=== PATIENT | male | born 2000 | race Caucasian/White ===

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

== ENCOUNTER 2023-10-05 08:18 | Emergency (ER) | payer BC ==
--- NOTE | 2023-10-05 08:23 | ERPHSYRPT ---
- History of Present Illness Time Seen by Provider: 10/05/23 08:22 Historian: patient Exam Limitations: no limitations Physician History: This is a 23-year-old white male patient of nurse practitioner Glenn who has significant hypertension and is on multiple medications for this and presents with intermittent chest pain for several months. The chest pain was worse this morning at 6 AM and associated with shortness of breath. Patient had episode of vomiting after taking his blood pressure medication this morning. He describes the pain as a pressure in the mid chest that radiates up into his throat and straight through to his back. Patient vapes often. He admits to marijuana use. He denies other illicit drug use. Patient states that his blood pressure medi cation regimen includes hydralazine, metoprolol and clonidine. He has no known exposures to individuals with similar symptoms or who have been diagnosed with flu. Patient states that he was diagnosed with flu a 2 weeks ago. Patient is under a lot of stress at this time. Patient recently lost his job. Timing/Duration: worse (This morning), other (Several months) Quality: pressure Location: substernal, central Chest Pain Radiation: neck, back Severity of Pain-Max: moderate Severity of Pain-Current: moderate Modifying Factors: Improves With: coughing Associated Symptoms: shortness of breath, cough, fever Prior Chest Pain/Cardiac Workup: no prior chest pain Nitro Today/Relief: no nitro taken today Aspirin Treatment Today: 81 mg x 4, provided by ED Allergies/Adverse Reactions: No Known Drug Allergies Allergy (Verified 09/05/21 21:46) Home Medications: Amlodipine Besylate 10 mg PO QAM 10/05/23 [History] Clonidine HCl 0.1 mg [Clonidine 0.1 mg Tablet] 0.1 mg PO BID 10/05/23 [History] Hydralazine HCl 50 mg PO BID 10/05/23 [History] Metoprolol Succinate 25 mg PO QAM 10/05/23 [History] Hx Tetanus, Diphtheria Vaccination/Date Given: Yes Hx Influenza Vaccination/Date Given: No Hx Pneumococcal Vaccination/Date Given: No Travel Risk - International Travel Have you traveled outside of the country in past 3 weeks: No - Coronavirus Screening Are you exhibiting any of the following symptoms?: Yes Symptoms: Fever, Cough: New Onset, Shortness of Breath, Vomiting/Diarrhea - Vaccine Status Have you recieved a Covid-19 vaccination: No - Review of Systems Constitutional: Fever Eyes: No Symptoms Ears, Nose, & Throat: No Symptoms Respiratory: Cough, Dyspnea Cardiac: Chest Pain Abdominal/Gastrointestinal: Nausea, Vomiting, Appetite Changes Genitourinary Symptoms: No Symptoms Musculoskeletal: No Symptoms Skin: No Symptoms Neurological: No Symptoms Psychological: No Symptoms Endocrine: No Symptoms Hematologic/Lymphatic: No Symptoms Immunological/Allergic: No Symptoms All Other Systems: Reviewed and Negative - Past Medical History Pertinent Past Medical History: Yes Neurological History: No Pertinent History ENT History: No Pertinent History Cardiac History: Other Respiratory History: Other Endocrine Medical History: No Pertinent History Musculoskeletal History: Fractures GI Medical History: No Pertinent History History: Renal Disease, Other Psycho-Social History: No Pertinent History Male Reproductive Disorders: No Pertinent History Other Medical History: PT HAD PNEUMO AT ; HEART MURMUR, Kidney stones - Past Surgical History Past Surgical History: No Other Surgical History: chest tube as - Social History Smoking Status: Never smoker How long have you smoked: 2 years Exposure to second hand smoke: Yes Drug Use: marijuana Patient Lives Alone: No Significant Family History: hypertension - Nursing Vital Signs Nursing Vital Signs: Initial Vital Signs Temperature 99.2 F 10/05/23 08:19 Pulse Rate 123 H 10/05/23 08:19 Respiratory Rate 22 10/05/23 08:19 O2 Sat by Pulse Oximetry 95 10/05/23 08:19 Pain Scale Pain Intensity 5 - Physical Exam General Appearance: mild distress, alert, anxiety Ears, Nose, Throat Exam: normal ENT inspection, moist mucous membranes Neck Exam: normal inspection, non-tender, supple, full range of motion Respiratory Exam: normal breath sounds, chest tenderness, lungs clear, airway intact, No respiratory distress Cardiovascular Exam: tachycardia Gastrointestinal/Abdomen Exam: soft, normal bowel sounds, No tenderness Rectal Exam: not done Back Exam: normal inspection, normal range of motion, No CVA tenderness, No vertebral tenderness Extremity Exam: normal inspection, normal range of motion, pelvis stable Neurologic Exam: alert, oriented x 3, cooperative, item repair manager II-XII nml as tested, normal mood/affect, nml cerebellar function, nml station & gait Skin Exam: normal color, warm, dry Lymphatic Exam: No adenopathy SpO2 Interpretation: normal O2 Delivery: Room Air - Course Nursing assessment & vital signs reviewed: Yes EKG Interpreted by Me: RATE ([id number]), Sinus Tach, NORMAL AXIS, NORMAL INTERVALS, NORMAL QRS, NORMAL ST-T, Other (No acute ischemic changes on today's twelve-lead EKG.) Ordered Tests: Active Orders 24 hr Category Date Time Status Clean Catch Urine Specimen STAT Care 10/05/23 08:38 Active EKG-ER Only STAT Care 10/05/23 08:36 Active IV Insertion STAT Care 10/05/23 08:36 Active Pulse Oximetry (ED) STAT Care 10/05/23 08:36 Active CHEST 1 VIEW (PORTABLE) Stat Exams 10/05/23 08:37 Completed BLOOD CULTURE Stat Lab 10/05/23 09:34 Received CBC W DIFF Stat Lab 10/05/23 08:46 Completed CMP Stat Lab 10/05/23 08:46 Completed D-DIMER QUANTITATIVE Stat Lab 10/05/23 08:46 Completed MONO SCREEN Stat Lab 10/05/23 08:46 Completed PROTIME WITH INR Stat Lab 10/05/23 08:46 Completed TROPONIN Q4H Lab 10/05/23 08:46 Completed TROPONIN Q4H Lab 10/05/23 12:45 Ordered TROPONIN Q4H Lab 10/05/23 16:45 Ordered UA W/RFX UR CULTURE Stat Lab 10/05/23 08:46 Completed Urine Triage Profile Stat Lab 10/05/23 08:46 Completed Medication Summary Generic Name Dose Route Start Last Admin Trade Name Freq PRN Reason Stop Dose Admin Sodium Chloride 1,000 mls @ 999 mls/hr 10/05/23 10:03 Sodium Chloride 0.9% 1000 Ml IV 10/05/23 11:03 .Q1H1M STA Discontinued Medications Generic Name Dose Route Start Last Admin Trade Name Freq PRN Reason Stop Dose Admin Hydrocodone Bitart/Acetaminophen 15 ml 10/05/23 10:05 Hydrocodone/Acetaminophen 5 Ml Udcup PO 10/05/23 10:06 STAT STA Hydrocodone Bitart/Acetaminophen Confirm 10/05/23 10:13 Hydrocodone/Acetaminophen 5 Ml Udcup Administered 10/05/23 10:14 Dose 15 ml .ROUTE .STK-MED ONE Aspirin 324 mg 10/05/23 08:36 10/05/23 08:42 Aspirin 81 Mg Tab.Chew PO 10/05/23 08:37 324 mg STAT ONE Administration Aspirin Confirm 10/05/23 08:41 Aspirin 81 Mg Tab.Chew Administered 10/05/23 08:42 Dose 324 mg .ROUTE .STK-MED ONE Sodium Chloride 1,000 mls @ 999 mls/hr 10/05/23 08:36 10/05/23 08:42 Sodium Chloride 0.9% 1000 Ml IV 10/05/23 09:36 999 mls/hr .Q1H1M STA Administration Sodium Chloride Confirm 10/05/23 08:41 Sodium Chloride 0.9% 1000 Ml Administered 10/05/23 08:42 Dose 1,000 mls @ ud .ROUTE .STK-MED ONE Sodium Chloride Confirm 10/05/23 10:13 Sodium Chloride 0.9% 1000 Ml Administered 10/05/23 10:14 Dose 1,000 mls @ ud .ROUTE .STK-MED ONE Ondansetron HCl 4 mg 10/05/23 08:36 10/05/23 08:42 Ondansetron Hcl 4 Mg/2 Ml Vial IV 10/05/23 08:37 4 mg STAT ONE Administration Ondansetron HCl Confirm 10/05/23 08:40 Ondansetron Hcl 4 Mg/2 Ml Vial Administered 10/05/23 08:41 Dose 4 mg .ROUTE .STK-MED ONE Lab/Rad Data: Laboratory Result Diagrams 10/05/23 08:46 10/05/23 08:46 Laboratory Results 10/05/23 10/05/23 10/05/23 Range/Units 09:38 08:46 08:46 WBC (4.0-10.5) x10^3/uL RBC (4.1-5.6) x10^6/uL Hgb (12.5-18.0) g/dL Hct (42-50) % MCV (78-100) fL MCH (26-32) pg MCHC (32-36) g/dL RDW (11.5-14.0) % Plt Count (150-450) x10^3/uL MPV (7.5-11.0) fL Gran % (36.0-66.0) % Immature Gran % (Auto) (0.00-0.4) % Nucleat RBC Rel Count (0.00-0.1) % Eos # (Auto) (0-0.5) x10^3/uL Immature Gran # (Auto) (0.00-0.03) x10^3u/L Absolute Lymphs (auto) (1.0-4.6) x10^3/uL Absolute Monos (auto) (0.0-1.3) x10^3/uL Absolute Nucleated RBC (0.00-0.01) x10^3u/L Lymphocytes % (24.0-44.0) % Monocytes % (0.0-12.0) % Eosinophils % (0.00-5.0) % Basophils % (0.0-0.4) % Absolute Granulocytes (1.4-6.9) x10^3/uL Basophils # (0-0.4) x10^3/uL PT (9.4-12.5) SECONDS INR (0.8-3.0) D-Dimer (0.0-0.50) mg/L Sodium (137-145) mmol/L Potassium (3.5-5.1) mmol/L Chloride (98-107) mmol/L Carbon Dioxide (22-30) mmol/L Anion Gap (5-15) MEQ/L BUN (9-20) mg/dL Creatinine (0.66-1.25) mg/dL Estimated GFR ML/MIN Glucose (74-106) mg/dL Calcium (8.4-10.2) mg/dL Total Bilirubin (0.2-1.3) mg/dL AST (17-59) U/L ALT (0-50) U/L Alkaline Phosphatase (38-126) U/L Troponin I (0.000-0.034) ng/mL Serum Total Protein (6.3-8.2) g/dL Albumin (3.5-5.0) g/dL Urine Color (Yellow) Urine Appearance (Clear) Urine pH (4.6-8.0) Ur Specific [address] (1.005-1.030) Urine Protein (Negative) Urine Glucose (UA) (Negative) mg/dL Urine Ketones (Negative) Urine Blood (Negative) Urine Nitrite (Negative) Urine Bilirubin (Negative) Urine Urobilinogen (0.2) mg/dL Ur Leukocyte Esterase (Negative) U Hyaline Cast (Auto) (0-2) /LPF Urine Microscopic RBC (0-5) /HPF Urine Microscopic WBC (0-5) /HPF Ur Epithelial Cells (None Seen) /HPF Urine Bacteria (None Seen) /HPF Granular Casts (None Seen) /LPF Urine Culture Reflexed (NO) Urine Opiates Level (NEGATIVE) Ur Methadone (NEGATIVE) Urine Barbiturates (NEGATIVE) Ur Phencyclidine (PCP) (NEGATIVE) Urine Amphetamine (NEGATIVE) U Benzodiazepine Level (NEGATIVE) Urine Cocaine (NEGATIVE) Urine Marijuana (THC) (NEGATIVE) Monoscreen NEGATIVE (NEGATIVE) Influenza Type A Ag NEGATIVE (NEGATIVE) Influenza Type B Ag NEGATIVE (NEGATIVE) RSV (PCR) POSITIVE (NEGATIVE) SARS-CoV-2 (PCR) NEGATIVE (NEGATIVE) Group A Strep Antibody NOT DETECTED (NEGATIVE) 10/05/23 10/05/23 10/05/23 Range/Units 08:46 08:46 08:46 WBC (4.0-10.5) x10^3/uL RBC (4.1-5.6) x10^6/uL Hgb (12.5-18.0) g/dL Hct (42-50) % MCV (78-100) fL MCH (26-32) pg MCHC (32-36) g/dL RDW (11.5-14.0) % Plt Count (150-450) x10^3/uL MPV (7.5-11.0) fL Gran % (36.0-66.0) % Immature Gran % (Auto) (0.00-0.4) % Nucleat RBC Rel Count (0.00-0.1) % Eos # (Auto) (0-0.5) x10^3/uL Immature Gran # (Auto) (0.00-0.03) x10^3u/L Absolute Lymphs (auto) (1.0-4.6) x10^3/uL Absolute Monos (auto) (0.0-1.3) x10^3/uL Absolute Nucleated RBC (0.00-0.01) x10^3u/L Lymphocytes % (24.0-44.0) % Monocytes % (0.0-12.0) % Eosinophils % (0.00-5.0) % Basophils % (0.0-0.4) % Absolute Granulocytes (1.4-6.9) x10^3/uL Basophils # (0-0.4) x10^3/uL PT (9.4-12.5) SECONDS INR (0.8-3.0) D-Dimer (0.0-0.50) mg/L Sodium (137-145) mmol/L Potassium (3.5-5.1) mmol/L Chloride (98-107) mmol/L Carbon Dioxide (22-30) mmol/L Anion Gap (5-15) MEQ/L BUN (9-20) mg/dL Creatinine (0.66-1.25) mg/dL Estimated GFR ML/MIN Glucose (74-106) mg/dL Calcium (8.4-10.2) mg/dL Total Bilirubin (0.2-1.3) mg/dL AST (17-59) U/L ALT (0-50) U/L Alkaline Phosphatase (38-126) U/L Troponin I < 0.012 (0.000-0.034) ng/mL Serum Total Protein (6.3-8.2) g/dL Albumin (3.5-5.0) g/dL Urine Color Dark Yellow (Yellow) Urine Appearance Cloudy A (Clear) Urine pH 5.0 (4.6-8.0) Ur Specific [address] 1.020 (1.005-1.030) Urine Protein >=1000 A (Negative) Urine Glucose (UA) Negative (Negative) mg/dL Urine Ketones 40 A (Negative) Urine Blood Negative (Negative) Urine Nitrite Negative (Negative) Urine Bilirubin Negative (Negative) Urine Urobilinogen 1.0 A (0.2) mg/dL Ur Leukocyte Esterase Negative (Negative) U Hyaline Cast (Auto) 3-5 A (0-2) /LPF Urine Microscopic RBC 0-2 (0-5) /HPF Urine Microscopic WBC 0-2 (0-5) /HPF Ur Epithelial Cells Rare (None Seen) /HPF Urine Bacteria None Seen (None Seen) /HPF Granular Casts 6-10 A (None Seen) /LPF Urine Culture Reflexed NO (NO) Urine Opiates Level NEGATIVE (NEGATIVE) Ur Methadone NEGATIVE (NEGATIVE) Urine Barbiturates NEGATIVE (NEGATIVE) Ur Phencyclidine (PCP) NEGATIVE (NEGATIVE) Urine Amphetamine NEGATIVE (NEGATIVE) U Benzodiazepine Level NEGATIVE (NEGATIVE) Urine Cocaine NEGATIVE (NEGATIVE) Urine Marijuana (THC) POSITIVE A (NEGATIVE) Monoscreen (NEGATIVE) Influenza Type A Ag (NEGATIVE) Influenza Type B Ag (NEGATIVE) RSV (PCR) (NEGATIVE) SARS-CoV-2 (PCR) (NEGATIVE) Group A Strep Antibody (NEGATIVE) 10/05/23 10/05/23 10/05/23 Range/Units 08:46 08:46 08:46 WBC 8.1 (4.0-10.5) x10^3/uL RBC 5.44 (4.1-5.6) x10^6/uL Hgb 15.3 (12.5-18.0) g/dL Hct 44.8 (42-50) % MCV 82.4 (78-100) fL MCH 28.1 (26-32) pg MCHC 34.2 (32-36) g/dL RDW 12.5 (11.5-14.0) % Plt Count 204 (150-450) x10^3/uL MPV 11.5 H (7.5-11.0) fL Gran % 67.1 H (36.0-66.0) % Immature Gran % (Auto) 0.2 (0.00-0.4) % Nucleat RBC Rel Count 0.0 (0.00-0.1) % Eos # (Auto) 0.13 (0-0.5) x10^3/uL Immature Gran # (Auto) 0.02 (0.00-0.03) x10^3u/L Absolute Lymphs (auto) 1.16 (1.0-4.6) x10^3/uL Absolute Monos (auto) 1.19 (0.0-1.3) x10^3/uL Absolute Nucleated RBC 0.00 (0.00-0.01) x10^3u/L Lymphocytes % 14.4 L (24.0-44.0) % Monocytes % 14.8 H (0.0-12.0) % Eosinophils % 1.6 (0.00-5.0) % Basophils % 1.9 (0.0-0.4) % Absolute Granulocytes 5.40 (1.4-6.9) x10^3/uL Basophils # 0.15 (0-0.4) x10^3/uL PT 10.7 (9.4-12.5) SECONDS INR 0.98 (0.8-3.0) D-Dimer 0.25 (0.0-0.50) mg/L Sodium 137 (137-145) mmol/L Potassium 3.4 L (3.5-5.1) mmol/L Chloride 103 (98-107) mmol/L Carbon Dioxide 17 L (22-30) mmol/L Anion Gap 19.7 H (5-15) MEQ/L BUN 19 (9-20) mg/dL Creatinine 1.63 H (0.66-1.25) mg/dL Estimated GFR 61.1 ML/MIN Glucose 105 (74-106) mg/dL Calcium 9.9 (8.4-10.2) mg/dL Total Bilirubin 2.10 H (0.2-1.3) mg/dL AST 51 (17-59) U/L ALT 78 H (0-50) U/L Alkaline Phosphatase 69 (38-126) U/L Troponin I (0.000-0.034) ng/mL Serum Total Protein 8.6 H (6.3-8.2) g/dL Albumin 4.9 (3.5-5.0) g/dL Urine Color (Yellow) Urine Appearance (Clear) Urine pH (4.6-8.0) Ur Specific [address] (1.005-1.030) Urine Protein (Negative) Urine Glucose (UA) (Negative) mg/dL Urine Ketones (Negative) Urine Blood (Negative) Urine Nitrite (Negative) Urine Bilirubin (Negative) Urine Urobilinogen (0.2) mg/dL Ur Leukocyte Esterase (Negative) U Hyaline Cast (Auto) (0-2) /LPF Urine Microscopic RBC (0-5) /HPF Urine Microscopic WBC (0-5) /HPF Ur Epithelial Cells (None Seen) /HPF Urine Bacteria (None Seen) /HPF Granular Casts (None Seen) /LPF Urine Culture Reflexed (NO) Urine Opiates Level (NEGATIVE) Ur Methadone (NEGATIVE) Urine Barbiturates (NEGATIVE) Ur Phencyclidine (PCP) (NEGATIVE) Urine Amphetamine (NEGATIVE) U Benzodiazepine Level (NEGATIVE) Urine Cocaine (NEGATIVE) Urine Marijuana (THC) (NEGATIVE) Monoscreen (NEGATIVE) Influenza Type A Ag (NEGATIVE) Influenza Type B Ag (NEGATIVE) RSV (PCR) (NEGATIVE) SARS-CoV-2 (PCR) (NEGATIVE) Group A Strep Antibody (NEGATIVE) - Progress Progress: improved, re-examined Air Movement: good Progress Note: 10/05/23 08:43 This patient's medical issue is 1 of moderate complexity. The level of complex ity in the workup performed is based on review of the patient's past medical history, review of the patient's medication list, review the patient's drug allergy list, history of present illness and physical findings on examination. This patient's workup includes placement of intravenous line, infusion of normal saline solution, viral swabs, group A strep swab, monotest, CBC, CMP, urinalysis, urine drug triage, twelve-lead EKG, D-dimer and troponin level. We will also order chest x-ray 10/05/23 10:02 Chest x-ray was interpreted by the radiologist and I reviewed the impression. The impression states no new or acute findings present. Blood Culture(s) Obtained: Yes Antibiotics given: No Counseled pt/family regarding: lab results, diagnosis, need for follow-up, rad results Medical Desision Making - Independent Historian Additional History obtained from: Mother - Diagnostic Testing Diagnostic test were ordered, analyzed, and reviewed by me: Yes Radiological Interpretation: Reviewed by me, Teleradiologist Report - Risk of complications The pt has a mod risk of morbidity or mortality based on: Need for prescription drug management - Departure Departure Disposition: Home Clinical Impression: Fever, Vomiting, RSV bronchitis Condition: Stable Critical Care Time: No Referrals: ZULEYKA ASHER NP [Primary Care Provider] - Follow up/PCP as directed Additional Instructions: Drink plenty fluids. Use Tylenol and ibuprofen for pain and fever control. Follow-up with your primary care provider for further evaluation management. Prescriptions: Ondansetron ODT 4 MG [Zofran Odt 4 mg] 4 mg PO Q6H PRN PRN #10 tablet PRN Reason: Vomiting
[2023-10-05 08:25] VITALS: TEMP 99.2
[2023-10-05] MEDS ORDERED: Sodium Chloride 0.9% 1000 ML 1,000 ML IV STA ×2 (08:36→10:03)
[2023-10-05] MEDS ORDERED: Zofran 4 MG/2 ML VIAL IV ONE (08:36)
[2023-10-05] MEDS ORDERED: BABY ASPIRIN 81 MG CHEW PO ONE (08:36)
[2023-10-05] MEDS ORDERED: Zofran 4 MG/2 ML VIAL ONE (08:40)
[2023-10-05] MEDS ORDERED: BABY ASPIRIN 81 MG CHEW ONE (08:41)
[2023-10-05] MEDS ORDERED: Sodium Chloride 0.9% 1000 ML 1,000 ML ONE ×2 (08:41→10:13)
[2023-10-05 08:52] LABS: BASOPHIL % 1.9 % (0.0-0.4); Basophil (Absolute #) 0.15 x10^3/uL (0-0.4); Eosinophil % 1.6 % (0.00-5.0); Eosinophil (Absolute #) 0.13 x10^3/uL (0-0.5); Hematocrit 44.8 % (42-50); Hemoglobin 15.3 g/dL (12.5-18.0); IMMATURE GRAN # 0.02 x10^3u/L (0.00-0.03); IMMATURE GRAN % 0.2 % (0.00-0.4); Lymphocyte (Absolute #) 1.16 x10^3/uL (1.0-4.6); Lymphocytes % 14.4 % (24.0-44.0); Mean Cell Volume 82.4 fL (78-100); Mean Corpuscular Hemoglobin 28.1 pg (26-32); Mean Corpuscular Hgb Concent. 34.2 g/dL (32-36); Mean Platelet Volume 11.5 fL (7.5-11.0); Monocyte (Absolute #) 1.19 x10^3/uL (0.0-1.3); Monocytes % 14.8 % (0.0-12.0); Neutrophil % 67.1 % (36.0-66.0); Platelet Count 204 x10^3/uL (150-450); Red Blood Count 5.44 x10^6/uL (4.1-5.6); Red Cell Distribution Width 12.5 % (11.5-14.0); White Blood Count 8.1 x10^3/uL (4.0-10.5)
[2023-10-05 09:06] LABS: ALBUMIN 4.9 g/dL (3.5-5.0); ANION GAP 19.7 MEQ/L (5-15); BILIRUBIN,TOTAL 2.1 mg/dL (0.2-1.3); Calcium 9.9 mg/dL (8.4-10.2); Creatinine 1 1.63 mg/dL (0.66-1.25); EST GLOMERULAR FILTRATION RATE 61.1 ML/MIN; Potassium 3.4 mmol/L (3.5-5.1); Total Protein 8.6 g/dL (6.3-8.2)
[2023-10-05 09:08] LABS: D-DIMER QUANTITATIVE 0.25 mg/L (0.0-0.50); INR 0.98 (0.8-3.0); PROTIME 10.7 SECONDS (9.4-12.5)
[2023-10-05 09:11] LABS: Amphetamine,Urine NEGATIVE (NEGATIVE); Barbiturate,Urine NEGATIVE (NEGATIVE); Benzodiazepine,Urine NEGATIVE (NEGATIVE); Cocaine,Urine NEGATIVE (NEGATIVE); Methadone,Urine NEGATIVE (NEGATIVE); Opiate,Urine NEGATIVE (NEGATIVE); PCP,Urine NEGATIVE (NEGATIVE); THC,Urine POSITIVE (NEGATIVE)
--- NOTE | 2023-10-05 09:21 | XRAY ---
Indication: Chest pain, cough, and fever. Comparison: January 12, 2021 Portable apical lordotic chest remains clear again with incidental left base calcified granuloma. Heart not enlarged. Bony thorax intact again with minimal scoliosis. No new/acute findings.
[2023-10-05 09:23] LABS: Appearance Cloudy (Clear); Bacteria None Seen /HPF (None Seen); Bilirubin Negative (Negative); Blood Negative (Negative); Epithelial Cells Rare /HPF (None Seen); Glucose, Urine Negative (Negative); Ketones 40 (Negative); Leukocyte Esterase Negative (Negative); Nitrite Negative (Negative); Protein,Urine Dip >=1000 (Negative); RBC 0-2 /HPF (0-5); WBC 0-2 /HPF (0-5)
[2023-10-05 09:25] LABS: ADD URINE CULTURE? NO (NO)
[2023-10-05 09:31] LABS: INFLUENZA A NEGATIVE (NEGATIVE); INFLUENZA B NEGATIVE (NEGATIVE); SARS-CoV-2 Xpert Express NEGATIVE (NEGATIVE)
[2023-10-05 09:33] LABS: RESPIRATORY SYNCTIAL VIRUS POSITIVE (NEGATIVE)
[2023-10-05] MEDS ORDERED: HYDROCODONE-ACETAMIN 2.5-108/5 ML SOLUTION PO STA (10:05)
[2023-10-05] MEDS ORDERED: HYDROCODONE-ACETAMIN 2.5-108/5 ML SOLUTION ONE (10:13)
[2023-10-05 11:06] VITALS: PULSE 98; RESP 22; O2SAT 93
[2023-10-05 11:16] VITALS: BP 133/86
== END 2023-10-05 11:16 | disposition home or self-care (01) ==
LOC: ED 08:18
DX: J20.5 Acute bronchitis due to respiratory syncytial virus (principal); R50.9 Fever, unspecified; R11.2 Nausea with vomiting, unspecified; R07.9 Chest pain, unspecified; R06.02 Shortness of breath; I10 Essential (primary) hypertension; Z79.899 Other long term (current) drug therapy; Z28.310 Unvaccinated for COVID-19; Z56.0 Unemployment, unspecified
CPT/HCPCS: 0241U; 36000; 36415; 71045; 80053; 80307; 81001; 84484; 85025; 85379; 85610; 86308; 87040; 87651; 93005; 94760; 96360; 96374; 99284; J2405; A9270-GY